=== PATIENT | male | born 1960 ===

== ENCOUNTER 2019-08-26 17:01 | Emergency (ER) | END 2019-08-26 17:50 | disposition home or self-care (01) | DX: S49.92XA Unspecified injury of left shoulder and upper arm, initial encounter (principal); W18.39XA Other fall on same level, initial encounter; Y93.23 Activity, snow (alpine) (downhill) skiing, snowboarding, sledding, tobogganing and snow tubing; Y92.89 Other specified places as the place of occurrence of the external cause; Y99.8 Other external cause status ==